=== PATIENT | female | born 1990 | race Caucasian/White ===

== ENCOUNTER 2018-09-16 06:17 | Day surgery (SDC) | payer MEDICAID ==
[~2018-09-16] VITALS: Ht 152.4 cm; Wt 65.0 kg
[2018-09-16 07:43] VITALS: BP 148/91
[2018-09-16] MEDS ORDERED: BUPIVACAINE HCL/DEXTROSE/PF 0.75% 2ML AMP INJ ONE (08:36)
[2018-09-16] MEDS ORDERED: CEFAZOLIN SODIUM 1000MG/VIAL ONE (08:39)
[2018-09-16] MEDS ORDERED: ONDANSETRON HCL 4MG/2ML INJ ONE (08:52)
[2018-09-16] MEDS ORDERED: KETOROLAC 30MG/ML VIAL ONE (08:59)
[2018-09-16] MEDS ORDERED: ONDANSETRON HCL 4MG/2ML INJ IV PRN (09:00)
[2018-09-16] MEDS ORDERED: HYDROMORPHONE HCL/PF 2MG/ML CPJ IV PRN (09:00)
[2018-09-16] MEDS ORDERED: MEPERIDINE HCL/PF 25MG/ML CPJ IV PRN (09:00)
[2018-09-16] MEDS ORDERED: LABETALOL 5MG/ML SYR 20 MG/4 ML SYRINGE IV PRN (09:00)
[2018-09-16] MEDS ORDERED: MAGN400C PO (09:38)
[2018-09-16] MEDS ORDERED: AMLO5TAB4 MT (09:38)
[2018-09-16] MEDS ORDERED: NIFE10CA MT (09:38)
== END 2018-09-16 12:45 | disposition home or self-care (01) ==
LOC: ER 06:17 → EDSTATUS 06:17 → ER 07:49 → OR 09:06
PROVIDERS: ATTEND Acupuncturist
DX: N84.1 Polyp of cervix uteri (principal); N88.3 Incompetence of cervix uteri; I10 Essential (primary) hypertension; Z3A.14 14 weeks gestation of pregnancy
CPT/HCPCS: 59320; 99283; J0690; J1885; J2405; J3490

== ENCOUNTER 2019-02-18 09:49 | Observation (INO) | payer MEDICAID ==
[~2019-02-18] VITALS: Ht 152.4 cm; Wt 75.3 kg
[2019-02-18] MEDS ORDERED: MEPERIDINE HCL/PF 50MG/ML CPJ IM NR (10:15)
[2019-02-18] MEDS ORDERED: AMLO2.5T45 MT (10:21)
[2019-02-18] MEDS: LACTATED RINGERS 1,000 ML IV SCH ×3 (10:54→13:55)
[2019-02-18] MEDS ORDERED: TERBUTALINE SULFATE 1MG/ML VIAL SUBCUT NR (12:25)
[2019-02-18] MEDS ORDERED: KETOROLAC 30MG/ML VIAL IV NR (14:16)
[2019-02-18 14:30] VITALS: BP 138/98
[2019-02-18] MEDS ORDERED: TERBUTALINE SULFATE 1MG/ML VIAL SUBCUT PRN (14:30)
== END 2019-02-18 15:50 | disposition home or self-care (01) ==
LOC: 8 EST LDRP 09:49
PROVIDERS: ADMIT Acupuncturist; ATTEND Acupuncturist
DX: O62.9 Abnormality of forces of labor, unspecified (principal); Z3A.36 36 weeks gestation of pregnancy
CPT/HCPCS: 96372; 96374; G0378; J1885; J2175; J3105; 59871

== ENCOUNTER 2019-03-02 22:17 | Observation (INO) | payer MEDICAID ==
[~2019-03-02 22:17] MED LIST: AMLO2.5T45 MT
[2019-03-02] MEDS ORDERED: PREN-52 MT (23:16)
== END 2019-03-02 23:30 | disposition home or self-care (01) ==
LOC: 8 EST LDRP 22:17
PROVIDERS: ADMIT Specialist; ATTEND Specialist
DX: O26.893 Other specified pregnancy related conditions, third trimester (principal); R10.30 Lower abdominal pain, unspecified; M54.9 Dorsalgia, unspecified; N89.8 Other specified noninflammatory disorders of vagina; O36.8130 Decreased fetal movements, third trimester, not applicable or unspecified; Z3A.38 38 weeks gestation of pregnancy
CPT/HCPCS: G0378

== ENCOUNTER 2019-03-04 05:59 | Inpatient (IN) | payer MEDICAID ==
[2019-03-03 14:42] VITALS: BP 135/85
[~2019-03-04] VITALS: Ht 152.4 cm; Wt 74.4 kg
[~2019-03-04 05:59] MED LIST changes: +PREN-52 MT
[2019-03-04] MEDS ORDERED: LACTATED RINGERS 1,000 ML IV SCH (06:09)
[2019-03-04] MEDS ORDERED: METHYLERGONOVINE MALEATE 0.2 MG/ML IM PRN (06:15)
[2019-03-04] MEDS ORDERED: BUTORPHANOL TARTRATE 2 MG/ML VIAL IV PRN (06:15)
[2019-03-04] MEDS ORDERED: LIDOCAINE HCL 1% 20ML VIAL (Pyxis) INJ INFIL SCH (06:15)
[2019-03-04] MEDS ORDERED: NALOXONE HCL 0.4 MG/ML 1ML VIAL IM PRN (06:15)
[2019-03-04] MEDS ORDERED: MISOPROSTOL 100MCG TABLET VG SCH (06:15)
[2019-03-04] MEDS ORDERED: CARBOPROST TROMETHAMINE 250 MCG/ML AMPUL IM PRN (06:15)
[2019-03-04 06:53] LABS: BASOPHILS % 0.3 % (0.0-2.0); EOSINOPHILS % 0.8 % (0.0-5.0); HEMOGLOBIN. 10.8 g/dL (12.0-16.0); MEAN CORPUSCULAR VOLUME 83.2 fL (81.0-99.0); MEAN PLATELET VOLUME 8.8 fl (7.4-10.4); MONOCYTES % 5.6 % (2.0-8.0); NEUTROPHILS % 75.3 % (40.0-76.0); PLATELET 334 x1000/uL (130-400); RED BLOOD CELL COUNT 3.84 mill/uL (4.2-5.4); RED CELL DISTRIBUTION WIDTH 14.6 % (11.6-14.6)
[2019-03-04 07:08] LABS: CHLORIDE 108 mEq/L (98-107)
[2019-03-04] MEDS ORDERED: MAGNESIUM 4 G PREMIX 100 ML IV ONE (07:15)
[2019-03-04] MEDS ORDERED: MAGNESIUM 20 G PREMIX (L & D) 500 ML IV PRN (07:15)
[2019-03-04] MEDS ORDERED: ROPIVACAINE HCL 10MG/ML 20 ML VIAL EPI ONE (08:00)
[2019-03-04] MEDS ORDERED: ROPIVACAINE HCL/PF EPIDURAL 200 ML EPI PRN (08:15)
[2019-03-04] MEDS: DEXT 5%/LR + PITOCIN 20UNITS/L 1,000 ML IV SCH ×2 (10:37→21:15)
[2019-03-04] MEDS ORDERED: DEXT 5%/LR + PITOCIN 20UNITS/L 1,000 ML IV SCH (11:10)
[2019-03-04 11:14] LABS: FIBRINOGEN 709 mg/dL (200-400); INR 0.9; PARTIAL THROMBOPLASTIN TIME 26.5 sec (23.4-31.0)
[2019-03-04] MEDS ORDERED: DIPHENHYDRAMINE 25MG CAPSULE PO PRN (11:15)
[2019-03-04] MEDS ORDERED: BENZOCAINE/LANOLIN/ALOE VERA SPRAY TOP PRN (11:15)
[2019-03-04] MEDS ORDERED: RHO(D) IMMUNE GLOBULIN 300 MCG/SYR IM PRN (11:15)
[2019-03-04] MEDS ORDERED: GLYCERIN/WITCH HAZEL LEAF MEDICATED PAD TOP PRN (11:15)
[2019-03-04] MEDS ORDERED: LANOLIN OINT 0.25 GM TUBE TOP PRN (11:15)
[2019-03-04] MEDS ORDERED: HEMORRHOIDAL SUPP PR PRN (11:15)
[2019-03-04] MEDS ORDERED: ACETAMINOPHEN WITH CODEINE 300/30MG TABLET PO PRN (11:15)
[2019-03-04 11:24] LABS: PROTHROMBIN TIME < 9.0 sec (9.6-11.0)
[2019-03-04 12:45] VITALS: BP 135/85
[2019-03-04 14:37] LABS: HEPATITIS B SURFACE ANTIGEN NEGATIVE
[2019-03-04 16:00] VITALS: BP 139/89
[2019-03-04 20:00] VITALS: BP 134/87
[2019-03-04] MEDS: MAGNESIUM 20 G PREMIX (L & D) 500 ML IV SCH ×2 (20:47→21:10)
[2019-03-04] MEDS: IBUPROFEN 400MG TABLET PO PRN (21:25)
[2019-03-04] MEDS: DOCUSATE SODIUM 100MG CAPSULE PO SCH (21:25)
[2019-03-05] VITALS (7 sets, daily range): BP systolic 115–131; BP diastolic 70–83
[2019-03-05] MEDS: IBUPROFEN 400MG TABLET PO PRN (04:39)
[2019-03-05] MEDS: FERROUS SULFATE 325MG TABLET PO SCH ×3 (06:57→15:41)
[2019-03-05] MEDS: MAGNESIUM 20 G PREMIX (L & D) 500 ML IV SCH (07:10)
[2019-03-05 07:19] LABS: BASOPHILS % 0.3 % (0.0-2.0); EOSINOPHILS % 0.9 % (0.0-5.0); HEMATOCRIT. 26.4 % (36.0-48.0); HEMOGLOBIN. 8.5 g/dL (12.0-16.0); MEAN CORPUSCULAR HEMOGLOBIN 27.4 pg (28.0-32.0); MEAN CORPUSCULAR VOLUME 84.7 fL (81.0-99.0); MEAN PLATELET VOLUME 8.9 fl (7.4-10.4); MONOCYTES % 5.3 % (2.0-8.0); NEUTROPHILS % 76.5 % (40.0-76.0); PLATELET 287 x1000/uL (130-400); RED BLOOD CELL COUNT 3.11 mill/uL (4.2-5.4); RED CELL DISTRIBUTION WIDTH 14.3 % (11.6-14.6)
[2019-03-05] MEDS: PRENATAL VIT/FE FUMARATE/FA TABLET PO SCH ×2 (09:00→15:41)
[2019-03-05] MEDS: IBUPROFEN 800MG TABLET PO PRN ×2 (15:43→21:43)
[2019-03-05] MEDS: DOCUSATE SODIUM 100MG CAPSULE PO SCH (21:14)
[2019-03-06 04:00] VITALS: BP 133/80
[2019-03-06 07:31] VITALS: BP 128/82
[2019-03-06] MEDS: IBUPROFEN 800MG TABLET PO PRN (08:02)
[2019-03-06] MEDS: PRENATAL VIT/FE FUMARATE/FA TABLET PO SCH (08:02)
[2019-03-06] MEDS: FERROUS SULFATE 325MG TABLET PO SCH (08:03)
== END 2019-03-06 10:35 | disposition home or self-care (01) | DRG 560 ==
LOC: OBSVTOIN 05:59 → 8 EST LDRP 05:59 → 5WST 13:32 → 8EST 03-05 12:46
PROVIDERS: ADMIT Obstetrics & Gynecology; ATTEND Obstetrics & Gynecology
PROC: 10E0XZZ Delivery of Products of Conception, External Approach (ICD-10-PCS; principal; 2019-03-04)
PROC: 3E0R3BZ Introduction of Anesthetic Agent into Spinal Canal, Percutaneous Approach (ICD-10-PCS; 2019-03-04)
PROC: 00HU33Z Insertion of Infusion Device into Spinal Canal, Percutaneous Approach (ICD-10-PCS; 2019-03-04)
DX: O13.4 Gestational [pregnancy-induced] hypertension without significant proteinuria, complicating childbirth (principal); D62 Acute posthemorrhagic anemia; O99.03 Anemia complicating the puerperium; Z37.0 Single live birth; Z3A.38 38 weeks gestation of pregnancy
CPT/HCPCS: 36415; 84550; 85384; 86592; 86703; 86762; 86850; 86900; 87340; 99281; C1893; J0595; J2590; J2795; J3475; A4315